=== PATIENT | female | born 1990 | race African-American/Black ===

== ENCOUNTER 2016-12-21 09:21 | Emergency (ER) | payer MEDICAID, OTHER ==
[~2016-12-21] VITALS: Ht 157.5 cm; Wt 47.5 kg
[2016-12-21 09:22] VITALS: BP 114/57; PULSE 80; RESP 20; TEMP 99; O2SAT 99
[2016-12-21] MEDS ORDERED: ACYC200C66 PO ×2 (09:40→10:04)
--- NOTE | 2016-12-21 09:54 | PD ---
HPI Chief Complaint: Complaint Time Seen by Provider: 09:43 Travel History International Travel<30 days: No Contact w/Intl Traveler<30days: No Traveled to known affect area: No History of Present Illness HPI 26-year-old female came to the emergency room with history of herpes breakout for past 2 weeks. Patient says she has been taking her left over acyclovir but ran out of it. She took total of 15 pills which was twice a day. She has had quite a few outbreaks in the past. She has not had unprotected sex for almost a year. No abnormal vaginal discharge. She does have some burning sensation in her vaginal area which is very similar to her previous outbreaks. Vital signs otherwise stable. She did not appear to be in any distress. She is otherwise a healthy person. She says she has an appointment with her [facility] next week. [facility] Past Medical History Narrative Medical List of her past medical, surgical, social and family history is reviewed from the nursing note. Hx Anticoagulant Therapy: No Asthma: Yes Cardiovascular Problems: No Chemotherapy: No Cerebrovascular Accident: No Diabetes: No Respiratory: No Tetanus Vaccination: > 5 Years Influenza Vaccination: No ?: Unknown LMP: 12/18/16 : 0 Past Surgical History Hysterectomy: No Tonsillectomy: Yes (INCLUDING ADENOIDS - 2003) Social History Alcohol Use: No Tobacco Use: No Substance Use: No Allergies-Medications (Allergen,Severity, Reaction): Coded Allergies: Pneumococcal Vaccine (Verified Allergy, Mild, EDEMA,FEVER, 12/21/16) Comments List of her allergies reviewed from the nurse's note. Reported Meds & Prescriptions Reported Meds & Active Scripts Active Acyclovir 200 Mg Cap 200 Mg PO 5 TIMES A DAY 5 Days Reported Acyclovir 200 Mg Cap 200 Mg PO 5 TIMES A DAY Narrative Medication List of her home medications reviewed from the nursing note. Review of Systems Except as stated in HPI: all other systems reviewed are Neg Physical Exam Narrative GENERAL: Awake, alert, no obvious distress SKIN: Focused skin assessment warm/dry. HEAD: Atraumatic. Normocephalic. EYES: Pupils equal and round. No scleral icterus. No injection or drainage. ENT: No nasal bleeding or discharge. Mucous membranes pink and moist. NECK: Trachea midline. No JVD. CARDIOVASCULAR: Regular rate and rhythm. No murmur appreciated. RESPIRATORY: No accessory muscle use. Clear to auscultation. Breath sounds equal bilaterally. GASTROINTESTINAL: Abdomen soft, non-tender, nondistended. Hepatic and splenic margins not palpable. : External inspection shows a herpes sore on the left labia majora. Rest of the external inspection appears to be normal. MUSCULOSKELETAL: No obvious deformities. No clubbing. No cyanosis. No edema. NEUROLOGICAL: Awake and alert. No obvious cranial nerve deficits. Motor grossly within normal limits. Normal speech. PSYCHIATRIC: Appropriate mood and affect; insight and judgment normal. Data Data Last Documented VS Vital Signs Date Time Temp Pulse Resp B/P Pulse Ox O2 Delivery O2 Flow Rate FiO2 12/21/16 09:35 76 18 12/21/16 09:22 99.0 114/57 99 Room Air MDM Medical Decision Making Medical Screen Exam Complete: Yes Emergency Medical Condition: Yes Medical Record Reviewed: Yes Differential Diagnosis Herpes outbreak Narrative Course 10:03 AM since patient has not had unprotected sex for almost a year chances of any other STD is extremely unlikely. She has an appointment next week with her [facility] and I encouraged her to have a Pap smear done with them. I'll give her a prescription for acyclovir and patient was happy with that. Procedures EKG Prior to Arrival: No Diagnosis Primary Impression: Herpes genitalis in women Referrals: Primary Care Physician Additional Instructions: Please follow-up with your [facility] as per your appointment. Take the medication as per the prescription direction. Return to the ER if the condition worsens or any other concerns. Med/Other Pt SpecificInfo: Prescription(s) given Scripts Acyclovir 200 Mg [id number] Mg PO 5 TIMES A DAY 5 Days Ref 0 Prov:Domonique Benito MD 12/21/16 Disposition: 01 DISCHARGE HOME Condition: Stable Domonique Benito MD Dec 21, 2016 09:54
== END 2016-12-21 10:58 | disposition home or self-care (01) ==
LOC: NEPD 09:21
DX: A60.00 Herpesviral infection of urogenital system, unspecified (principal)
CPT/HCPCS: 99283

== ENCOUNTER 2017-12-24 17:14 | Emergency (ER) | payer OTHER, MEDICAID ==
[~2017-12-24] VITALS: Ht 157.5 cm; Wt 47.5 kg
[~2017-12-24 17:14] MED LIST: ACYC200C66 PO
[2017-12-24 17:21] VITALS: BP 121/58; PULSE 100; RESP 16; TEMP 98.1; O2SAT 100
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
[2017-12-24] MEDS ORDERED: IBUP-232 PO (19:43)
== END 2017-12-24 19:55 | disposition home or self-care (01) ==
LOC: NEPD 17:14
DX: S13.4XXA Sprain of ligaments of cervical spine, initial encounter (principal); V43.52XA Car driver injured in collision with other type car in traffic accident, initial encounter; Y92.410 Unspecified street and highway as the place of occurrence of the external cause
CPT/HCPCS: 72125; 99283